=== PATIENT | female | born 1990 | race Caucasian/White ===

== ENCOUNTER 2017-07-10 04:44 | Emergency (ER) | payer OTHER, SELFPAY ==
[2017-07-10 04:45] VITALS: BP 133/81; PULSE 107; RESP 20; TEMP 36.6; O2SAT 98; BMI 22.2
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
[2017-07-10 06:00] VITALS: BP 136/86; PULSE 103; RESP 20; O2SAT 99
[2017-07-10 06:12] LABS: HCG Qualitative, Serum Negative (Negative)
--- NOTE | 2017-07-10 06:24 | PC.NURSE ---
pt in CT
--- NOTE | 2017-07-10 06:43 | PC.NURSE ---
Pt. returned from CT
[2017-07-10 06:47] VITALS: BP 106/55; PULSE 88; RESP 16; O2SAT 97
[2017-07-10 07:28] LABS: Ethyl Alcohol 286 mg/dL (0-99)
[2017-07-10 08:10] VITALS: BP 116/87; PULSE 85; RESP 16; TEMP 36.8; O2SAT 98
== END 2017-07-10 08:11 ==
PROVIDERS: Emergency Provider Emergency Medicine
DX: S06.0X1A Concussion with loss of consciousness of 30 minutes or less, initial encounter (principal); V47.0XXA Car driver injured in collision with fixed or stationary object in nontraffic accident, initial encounter; Y92.410 Unspecified street and highway as the place of occurrence of the external cause
CPT/HCPCS: 70450; 71045; 72125; 72170; 84703; 99283